=== PATIENT | male | born 1960 | race Caucasian/White ===

== ENCOUNTER 2020-07-08 11:30 | Observation (INO) | payer OTHER, SELFPAY ==
[2020-07-08] VITALS (10 sets, daily range): BP systolic 114–162; BP diastolic 54–101; PULSE 63–71; RESP 15–20; TEMP 36.2–36.7; O2SAT 93–98; BMI 39.0; BMI 39.9; BMI 40.0
--- NOTE | 2020-07-08 11:59 | EKG12_ITS ---
Test Reason : Blood Pressure : / mmHG Vent. Rate : 066 BPM Atrial Rate : 066 BPM P-R Int : 180 ms QRS Dur : 126 ms QT Int : 488 ms P-R-T Axes : 031 -07 065 degrees QTc Int : 511 ms Normal sinus rhythm Non-specific intra-ventricular conduction block Inferior infarct , age undetermined T wave abnormality, consider anterolateral ischemia Abnormal ECG Confirmed by EMORY ROMAN, ADRIAN ([id number]), associate editor KENROY MORALES ([id number]) on 07/13/2020 6:34:44 AM Referred By: REGINALD/GABRIEL Confirmed By:ADRIAN CAT MD
--- NOTE | 2020-07-08 12:00 | CT_ITS ---
STUDY: CTA HEAD AND NECK WITH CONTRAST REASON FOR EXAM: Male, 59 years old. LEFT EYE BLURRINESS X5 MINUTES X3 DAYS AGO--NO SYMPTOMS NOW -- HX AORTIC DISSECTION W/ REPAIR RADIATION DOSAGE (If Supplied By Facility): CTDIvol = ( 27.69 ) mGy, DLP = ( 2605.44 ) mGycm TECHNIQUE: CT angiography was performed with a multi-detector CT scanner. Data acquisition was obtained from the skull base through the vertex following intravenous administration of IV 100mL Isovue-370. MIP images were reconstructed from the axial data set. Post-processing of the angiographic images was performed, with multiplanar reformation and 3D reconstruction. Individualized dose optimization techniques were used for this CT. COMPARISON: No relevant priors. FINDINGS: Normal bilateral petrous carotid arteries. Normal right cavernous carotid artery with a normal supraclinoid bifurcation. Normal left cavernous carotid artery with a normal supraclinoid bifurcation. Normal right A1 segments of the anterior cerebral artery. Normal left A1 segments of the anterior cerebral artery. Normal intact anterior communicating artery (ACOM). Normal bilateral A2 segments of the anterior cerebral arteries. Normal right M1 and M2 segments of the middle cerebral arteries, with a normal M1 bifurcation. Normal left M1 and M2 segments of the middle cerebral arteries, with a normal M1 bifurcation. Normal right posterior communicating artery (PCOM). Normal left posterior communicating artery (PCOM). Normal bilateral vertebral arteries. Normal basilar artery with a normal basilar bifurcation. The visualized bilateral superior cerebellar (SCA) arteries are normal. Normal bilateral P1, P2 and visualized P3 segments of the posterior cerebral arteries. There is no demonstrated aneurysm of the [place]. There is no demonstrated abnormality of the visualized brain. AORTIC ARCH: There is atherosclerotic calcific plaque formation of the aortic arch and great vessels arising from the aortic arch, without a hemodynamically significant stenosis. There is a bovine origin of the great vessels with a common origin of the brachiocephalic and left common carotid artery. Normal origin of the left subclavian artery. Prior CABG. RIGHT CAROTID ARTERIES: Normal right common carotid artery (CCA). Normal right common carotid bulb. Normal origin of the right internal carotid (ICA) artery without a hemodynamically significant stenosis. Normal visualized cervical portion of the right internal carotid artery. Normal origin of the right external carotid artery (ECA). LEFT CAROTID ARTERIES: Normal left common carotid artery (CCA). Normal left common carotid bulb. Normal origin of the left internal carotid (ICA) artery without a hemodynamically significant stenosis. Normal visualized cervical portion of the left internal carotid artery. Normal origin of the left external carotid artery (ECA). VERTEBRAL ARTERIES: There is enhancement within the bilateral vertebral arteries with a small right vertebral artery, and a dominant left vertebral artery. CT/CTA Head AND Neck W/ Contrast IMPRESSION: Normal CTA Head and neck with contrast. Electronically Signed: Eulogio Benjamin, at 14:54 EST , Service support ,
--- NOTE | 2020-07-08 12:00 | CT_ITS ---
STUDY: CTA CHEST REASON FOR EXAM: Male, 59 years old. LEFT EYE BLURRINESS X5 MINUTES X3 DAYS AGO--NO SYMPTOMS NOW -- HX-AORTIC DISSECTION W/ REPAIR RADIATION DOSAGE (If Supplied By Facility): CTDIvol = ( 27.69 ) mGy, DLP = ( 2605.44 ) mGycm TECHNIQUE: The examination was performed with the intravenous administration of IV 100mL Isovue-370. Post-processing of the angiographic images was performed, with multiplanar reformation and 3D reconstruction. Individualized dose optimization techniques were used for this CT. COMPARISON: Comparison is made with prior examination dated 04/08/2015. FINDINGS: Normal enhancement of the main pulmonary artery and right and left pulmonary arteries. Normal enhancement of the bilateral peripheral pulmonary arteries. There is no demonstrated pulmonary embolism. Normal thoracic aorta and visualized great vessels. The patient is status post endoluminal stent grafting of a dissection of the aortic arch down to the distal portion of the descending thoracic aorta. The descending aorta is not dilated at this time. The stent is in the true lumen. The false lumen is seen in the distal portion of the thoracic aorta. Normal heart and pericardium. Normal mediastinum. Normal hilar regions. Normal visualized trachea and bronchi. Mild degree of increased markings at the left lung base suggestive of a atelectasis and/or scarring. Normal pulmonary parenchyma. Normal pleura. Normal chest wall structures. There are degenerative changes of thoracic spine. Normal visualized upper abdomen. CT/CTA Chest W/WO Contrast IMPRESSION: Status post aortic stent grafting of the dissection of the thoracic aorta from the level of the aortic arch down to the distal portion of the thoracic aorta. Patency of the true lumen. The ascending thoracic aorta is not dilated at this time. Mild degree of increased markings at the left lung base suggestive of left basilar atelectasis. Electronically Signed: Eulogio Benjamin, at 14:59 EST , Service support ,
--- NOTE | 2020-07-08 12:29 | ED.VISSUMM ---
- ER Visit Summary Date of Service: 07/08/20 Chief Complaint: Visual change left eye History of Present Illness: The patient is a 59 M who presents with change in his vision in his left eye that occurred 4 days ago. Patient states he lost the vision in his left eye. Patient states he started seeing spots of reveles and then lost complete vision in his left eye. Patient states this lasted approximately 5 minutes and then returned. Patient states nothing made it better or worse. Patient denies any headaches. Patient does admit to some occasional shortness of breath. Patient denies any fevers or chills. Patient denies any chest pain or shortness of breath. Patient saw his wage hand today who referred him to the emergency department. Physical Examination: Vital signs are stable. Patient is afebrile. Patient is in no acute distress. Pupils are dilated. Funduscopic exam was benign. Oral mucosa is pink and moist. Neck is supple. Trachea is midline. There is no JVD noted. Heart was regular rate and rhythm. Lungs are clear and equal bilaterally. Abdomen is soft. Bowel sounds are normal. There is no tenderness. There is no rebound or guarding noted. Skin is warm dry. Cranial nerves II through XII are intact. There are no focal motor or sensory deficits noted. Extremities are intact. There is no calf tenderness or edema. Test Results: EKG was obtained. On my interpretation, there is a normal sinus rhythm with a rate of 66. There is a right bundle branch block pattern. There are no acute ST or T wave changes. This was unchanged compared to previous EKG dated 04/08/2015. CBC and comprehensive metabolic profile were within normal limits. PT with INR and PTT were normal. Troponin was normal. CTA of the head and neck was obtained and was normal. CTA of the chest was obtained. There is no acute process. There is status post aortic stent grafting but no dissection. These were interpreted by the radiologist and reviewed by myself. Emergency Department Course and Treatment: Patient was feeling better on reevaluation. Patient is agreeable for admission for TIA work-up. Case was discussed with the hospitalist. Patient to PCU for observation. Patient understands and is agreeable with the plan. All questions were answered. Disposition: Admit to hospital Impression: 1. Amaurosis fugax This note was generated with Soceani[employer]ation software. It may contain incorrect words, spelling, and punctuation that were not noted in review of the chart prior to signing ED Disposition - Plan for ED Patient: Disposition: Acute Care Hospital [facility] Diagnosis: Amaurosis fugax of left eye Referrals: Sandie Hyman MD [Primary Care Provider] -
[2020-07-08 13:41] LABS: Absolute Lymphocyte Count 1.35 X10^3/uL (0.83-4.51); Absolute Neutrophil Count 5.8 X10^3/uL (2.0-7.7); Basophil# 0.09 X10^3/uL; Basophil% 1.1 % (0-1); Eosinophil# 0.29 X10^3/uL; Eosinophils% 3.5 % (0-5); Hematocrit 44.8 % (40-54); Hemoglobin 14.8 g/dL (13.0-16.5); Lymphocyte # 1.35 X10^3/ul (4.0); Lymphocyte % 16.2 % (19-41); Mean Corpuscular Hgb 28.5 pg (27.0-32.0); Mean Corpuscular Volume 86.3 fL (80-94); Mean Platelet Vol. 9.7 fl (6.2-12.0); Monocyte# 0.82 X10^3/uL; Monocyte% 9.9 % (0-10); NRBC Flagged by Analyzer 0 % (0-5); Neutrophil # 5.75 X10^3/uL (2.7-7.7); Neutrophil % 69.1 % (47-70); Platelet Count 258 K/mm3 (150-450); RBC Distribution Width CV 13.5 % (11.6-14.6); RBC Distribution Width SD 42.3 fl (35.1-43.9); Red Blood Count 5.19 M/mm3 (4.6-6.2); White Blood Count 8.3 K/mm3 (4.4-11.0)
[2020-07-08 13:50] LABS: Prothrombin Time (Protime)PT. 12.4 SECONDS (11.7-14.9)
[2020-07-08 13:51] LABS: Partial Thromboplast Time 27.4 Seconds (24.1-36.2)
[2020-07-08 13:58] LABS: ALB/GLOB Ratio 1.1 RATIO (0.9-2.4); AST(SGOT) 15 U/L (15-37); Alanine Aminotransfer ALT/SGPT 37 U/L (16-61); Alkaline Phosphatase 92 U/L (45-117); Anion Gap 4 (5-15); BUN 16 mg/dL (7-18); BUN/Creat Ratio 16.1 RATIO (10-20); Chloride 105 mmol/L (98-107); Creatinine, Serum 0.99 mg/dL (0.70-1.30); EST Glomerular Filtration Rate 82 mL/min (>60); Est Glom Filt Rate - Afr Amer 99 mL/min (>60); Estimated Creatinine Clearance 89.27 ml/min; Globulin 3.8 g/dL (2.2-4.2); Glucose 88 mg/dL (74-106); Potassium 3.5 mmol/L (3.5-5.1); Protein, Total 7.8 g/dL (6.4-8.2); Sodium Level 139 mmol/L (136-145)
--- NOTE | 2020-07-08 16:01 | HP.PCM_ITS ---
Problem List (1) Amaurosis fugax of left eye Status: Acute (2) Hypertension Status: Chronic (3) Hyperlipidemia Status: Chronic (4) Anxiety Status: Chronic (5) History of aortic dissection Status: Chronic (6) Obesity Status: Chronic History of Present Illness Date of Admission: 07/08/20 Chief Complaint: Left eye vision changes. The patient is a 59 year old M who presents to the emergency room due to left eye vision changes. Patient states on Saturday night he had left eye vision changes with spotty vision followed by vision loss which patient reports lasted only a few minutes. He denies further vision changes since that time. He was evaluated by ophthalmology today and and eye exam was reported to be normal however due to his symptoms he was sent to the emergency room for further evaluation. He denies numbness, tingling. Denies headache/migraine. Denies unilateral weakness or focal deficits. He has a past medical history of aortic dissection status post aortic stent grafting, hypertension, hyperlipidemia, anxiety, suspected HALEY, obesity. Past Medical History Past Medical History (Chronic Problems): Chronic Problems Hypertension (Chronic) Hyperlipidemia (Chronic) Anxiety (Chronic) History of aortic dissection (Chronic) Obesity (Chronic) Allergies Penicillins Allergy (Verified 07/08/20 11:33) Rash Home Medications: Ambulatory Orders Medication Instructions Recorded No Known/Unobtainable [No Known 04/08/15 Home Medications] Surgical History: - - Right ankle surgery, aortic stent grafting, tricuspid valve repair. Psychiatric History: Anxiety Lives: Spouse/ Significant Other Smoking Status: Former smoker Alcohol: Occasional Drugs: None - *Family History Maternal History Items: - - Denies known maternal medical history including cardiac history. Paternal History Items: Cancer Review of Systems Constitutional: Denies: Chills, Fever, Weight Change Eyes: Reports: - - Transient left eye vision loss/vision changes HEENT: Denies: Head Aches, Sinus Congestion, Sinus Drainage Cardiovascular: Denies: Chest Pain, Palpitations Respiratory: Denies: Cough, Shortness of breath at rest, Sputum production Gastrointestinal: Denies: Abdominal Pain, Nausea, Vomiting Genitourinary: Denies: Dysuria Musculoskeletal: Denies: Joint Pain, Joint Tenderness Skin: Denies: Rash, Wounds Neurological: Denies: Numbness, Tingling, Focal weakness Psychiatric: Denies: Anxiety, Depression, Homicidal Ideations, Suicidal Ideations Hematologic/ Lymphatic: Denies: Easy Bruising, Easy Bleeding VTE Information - Inpt Only VTE Present on Admission: No VTE Mechan Device Prophylaxis: None VTE Pharm Prophylaxis ordered?: Yes Patient Problems: Active and Suspected Problems Amaurosis fugax of left eye (Acute) - Physical Exam Vitals/I&O's: Vital Signs Temp Pulse Resp BP Pulse Ox 97.4 F L 67 15 146/76 H 96 07/08/20 11:31 07/08/20 15:45 07/08/20 15:45 07/08/20 15:45 07/08/20 15:45 Oxygen Delivery Method Room Air Weight: 287 lb 14.779 oz Body Mass Index (BMI) 39.0 General: Alert, Oriented x3, Cooperative HEENT: Atraumatic, PERRLA, EOMI, Normocephalic Neck: Supple, No JVD, Negative Carotid Bruits Lungs: Clear to auscultation, Normal air movement Cardiovascular: Regular rate, No murmurs Abdomen: Bowel Sounds Present, Soft, Non Tender Extremities: No clubbing, No cyanosis, No edema, Capillary Refill Less than 3 Seconds Skin: No rashes, No breakdown Musculoskeletal: No Tenderness to Palpation of Joints or Extremities Neurological: Cranial nerves II-XII grossly intact, Neuro grossly intact Psych/Mental Status: Normal Affect, Appropriate Laboratory Results 07/08/20 13:30: WBC 8.3, RBC 5.19, Hgb 14.8, Hct 44.8, MCV 86.3, MCH 28.5, MCHC 33.0, RDW Std Deviation 42.3, RDW Coeff of [place] 13.5, Plt Count 258, MPV 9.7, Imm ature Gran % (Auto) 0.200, Neut % (Auto) 69.1, Lymph % (Auto) 16.2 L, [place] % (Auto) 9.9, Eos % (Auto) 3.5, Baso % (Auto) 1.1 H, Absolute Neuts (auto) 5.8, Absolute Lymphs (auto) 1.35, Nucleated RBC % 0 07/08/20 13:30: PT 12.4, INR 1.0, APTT 27.4 07/08/20 13:30: Sodium 139, Potassium 3.5, Chloride 105, Carbon Dioxide 30.0, Anion Gap 4 L, BUN 16, Creatinine 0.99, Estim Creat Clear Calc 89.27, Est GFR (MDRD) Af Amer 99, Est GFR (MDRD) Non-Af 82, BUN/Creatinine Ratio 16.1, Glucose 88, Calcium 9.0, Total Bilirubin 0.90, AST 15, ALT 37, Alkaline Phosphatase 92, Troponin I < 0.015, Total Protein 7.8, Albumin 4.0, Globulin 3.8, Albumin/Globulin Ratio 1.1 Assessment/Plan All Active Problems Amaurosis fugax of left eye (Acute) 1. Left eye vision changes, rule out TIA/CVA-head and neck CTA normal. Obtain MRI of brain. Aspirin, statin. Lipid panel in a.m. If MRI abnormal, consult neurology. PT/OT/ST. 2. History of aortic dissection-CTA demonstrates aortic stent grafting of the thoracic aorta, no dilation. 3. Hypertension-permissive given #1. Hold home losartan, metoprolol, HCTZ, amlodipine regimen. 4. Fciojopaazmfmk-izuh-pomy statin. Lipid panel in a.m. 5. Depression-on escitalopram. 6. Suspected HALEY-patient states he had abnormal sleep study 1 year ago however he thinks it was due to his dog jumping on him. 7. Obesity-encouraged diet lifestyle modifications. DVT prophylaxis-Lovenox subcu This patient was seen by IFTIKHAR Quiroz under the supervision of Dr. Salcedo.
--- NOTE | 2020-07-08 16:09 | NURSING ---
PCU WHITE AMAUROSIS FUGAX
--- NOTE | 2020-07-08 18:12 | MRI_ITS ---
STUDY: MRI BRAIN WITHOUT CONTRAST REASON FOR EXAM: Male, 59 years old. Sent to ER by harness and bag inspector d/t one episode of vision loss in left eye on 07/05/2020, hx of aortic dissection repair in 2017 TECHNIQUE: Standardized multiplanar fat and water weighted pulse sequences were obtained. COMPARISON: CT of the brain 07/08/2020 FINDINGS: Normal size of the ventricles and extra-axial spaces for the patient''s age. There is focal gliosis in the right parietal lobe which may be secondary to chronic ischemic changes. No restricted diffusion to suggest acute ischemia.. Normal bilateral basal ganglia. Normal thalami. There is no extra-axial fluid accumulation. Normal flow voids within the major intracranial circulation suggesting patency by spin echo criteria. Normal sella turcica, pituitary gland, infundibular stalk, optic chiasm and hypothalamus. Normal tectal plate and pineal gland. Normal midbrain, jaimie and medulla. Normal cerebellum. Normal basal cisterns. Normal bilateral temporal bones. Normal bilateral internal auditory canals. No demonstrated orbital abnormality, within the constraints of a routine brain study. Small mucous retention cyst in left maxillary sinus. Minor mucosal thickening of the ethmoid air cells. Normal calvarium and skull base. Normal visualized soft tissue structures. Normal visualized upper cervical spine. MRI/Brain without Contrast IMPRESSION: Mild focal gliosis in the right parietal lobe consistent with chronic ischemic changes but no evidence for acute infarct. Electronically Signed: Silvano Cox MD at 19:58 EST , Service support ,
[2020-07-08 18:46] LABS: Magnesium 2.1 mg/dL (1.6-2.6); Thyroid Stim Hormone (TSH) 1.28 uIU/mL (0.358-3.74)
[2020-07-08] MEDS: Escitalopram Oxalate 20 MG Tablet PO (22:21)
[2020-07-08] MEDS: Metoprolol Tartrate 50 MG Tablet 150 MG PO (22:21)
[2020-07-08] MEDS: Atorvastatin Calcium 80 MG Tablet PO (22:21)
[2020-07-08] MEDS: Losartan Potassium 50 MG Tablet PO (22:22)
[2020-07-09 03:00] VITALS: PULSE 57
[2020-07-09 03:50] VITALS: BP 122/61; PULSE 53; RESP 19; TEMP 36.6; O2SAT 95
[2020-07-09 06:48] VITALS: O2SAT 94
[2020-07-09 07:00] VITALS: PULSE 57
[2020-07-09 08:13] LABS: Cholesterol 108 mg/dL (200); High Density Lipoprotein 37 mg/dL; Triglycerides 155 mg/dL; Very Low Density Lipoprotein 31 mg/dL (5-40)
[2020-07-09] MEDS: Aspirin 81 MG TAB.CHEW PO (08:15)
--- NOTE | 2020-07-09 08:17 | PCS.PANDOC ---
PANDEMIC DOCUMENTATION INITIATED: Date: 07/08/20 Time: 1073
--- NOTE | 2020-07-09 09:27 | DCINST_ITS ---
- Discharge Diagnoses Current Active Problems: Current Active and Chronic Problems Amaurosis fugax of left eye (Acute) Hypertension (Chronic) Hyperlipidemia (Chronic) Anxiety (Chronic) History of aortic dissection (Chronic) Obesity (Chronic) You will use the following diet at home:: Cardiac Discharge Activity: Return to Normal Activity Call your doctor if you observe: Shortness of breath, Dizziness, Fainting spells, Chest pain Allergies/Adverse Reactions: Allergies Penicillins Allergy (Verified 07/08/20 11:33) Rash Medications to take at Discharge Amlodipine [Norvasc] 10 mg PO DAILY 07/08/20 Aspirin E.C. [Ecotrin] 81 mg PO DAILY@0800 07/08/20 Atorvastatin Calcium [Lipitor] 20 mg PO QHS 07/08/20 Escitalopram Oxalate 20 mg PO QHS 07/08/20 Furosemide [Lasix] 20 mg PO DAILY PRN PRN 07/08/20 Hydrochlorothiazide [Hctz] 25 mg PO DAILY 07/08/20 Losartan Potassium [Cozaar] 50 mg PO BID 07/08/20 Metoprolol Tartrate [Lopressor (beta kam)] 150 mg PO BID 07/08/20 Multivitamin with Minerals [Multiple Vitamin] 1 tab PO DAILY 07/08/20 Omeprazole 20 mg PO DAILY 07/08/20 Primary Care Physician: Sandie Hyman MD [Primary Care Provider] - Please follow up with your Primary Care Physician in: 1 Week Test Results: Test results from this visit will be discussed in further detail at your follow- up appointment, if applicable. Proposed Discharge Date: 07/09/20
[2020-07-09 09:40] VITALS: BP 137/72; PULSE 65; RESP 16; TEMP 37; O2SAT 94
[2020-07-09 09:45] VITALS: PULSE 65
[2020-07-09] MEDS: Metoprolol Tartrate 50 MG Tablet 150 MG PO (09:45)
[2020-07-09] MEDS: Pantoprazole Sodium 20 MG Tablet PO (09:45)
[2020-07-09] MEDS: Losartan Potassium 50 MG Tablet PO (09:45)
[2020-07-09] MEDS: hydroCHLOROthiazide 25 MG Tablet PO (09:45)
[2020-07-09] MEDS: amLODIPine 10 MG Tablet PO (09:45)
--- NOTE | 2020-07-09 11:49 | PCM.DC.SUM ---
Discharge Date and Diagnosis - Problem List Patient Problems: Active and Suspected Problems Amaurosis fugax of left eye (Acute) Date of Admission: 07/08/20 Date of Discharge: 07/09/20 - Primary Discharge Diagnosis Acute Problems: Active Problems 1. Transient amaurosis fugax of left eye 2. History of aortic dissection 3. Hypertension 4. Hyperlipidemia 5. Depression 6. Suspected HALEY 7. Obesity - Secondary Discharge Diagnosis Chronic Problems: Chronic Problems Hypertension (Chronic) Hyperlipidemia (Chronic) Anxiety (Chronic) History of aortic dissection (Chronic) Obesity (Chronic) Hospital Course and Treatment Imaging Results: Diagnostic Data Chest CTA 07/08/20 12:00 IMPRESSION: Status post aortic stent grafting of the dissection of the thoracic aorta from the level of the aortic arch down to the distal portion of the thoracic aorta. Patency of the true lumen. The ascending thoracic aorta is not dilated at this time. Mild degree of increased markings at the left lung base suggestive of left basilar atelectasis. Electronically Signed: Eulogio Benjamin, at 14:59 EST , Service support , Head/Neck CTA 07/08/20 12:00 IMPRESSION: Normal CTA Head and neck with contrast. Electronically Signed: Eulogio Benjamin, at 14:54 EST , Service support , Brain MRI 07/08/20 18:12 IMPRESSION: Mild focal gliosis in the right parietal lobe consistent with chronic ischemic changes but no evidence for acute infarct. Electronically Signed: Silvano Cox MD at 19:58 EST , Service support , Operations: None Procedures: None Summary of Care Provided: The patient is a 59 year old M admitted 07/08/2020 due to left eye vision changes. 1. Transient amaurosis fugax of left eye- TIA/CVA ruled out. Head and neck CTA normal. MRI of brain without acute infarct. Patient was cleared by ophthalmology. He is on aspirin, statin at baseline. Follow-up with PCP in 1 week. 2. History of aortic dissection-CTA demonstrates aortic stent grafting of the thoracic aorta, no dilation. 3. Hypertension-continue home losartan, metoprolol, HCTZ, amlodipine regimen. 4. Hyperlipidemia-continue home statin regimen. 5. Depression-on escitalopram. 6. Suspected HALEY-patient states he had abnormal sleep study 1 year ago however he thinks it was due to his dog jumping on him. Recommend further follow-up and evaluation. 7. Obesity-encouraged diet lifestyle modifications. General: Alert, Oriented x3, Cooperative HEENT: Atraumatic, PERRLA, EOMI, Normocephalic Neck: Supple, No JVD, Negative Carotid Bruits Lungs: Clear to auscultation, Normal air movement Cardiovascular: Regular rate, No murmurs Abdomen: Bowel Sounds Present, Soft, Non Tender Extremities: No clubbing, No cyanosis, No edema, Capillary Refill Less than 3 Seconds Skin: No rashes, No breakdown Musculoskeletal: No Tenderness to Palpation of Joints or Extremities Neurological: Cranial nerves II-XII grossly intact, Neuro grossly intact Psych/Mental Status: Normal Affect, Appropriate Patient seen and examined prior to discharge. Physical assessment as noted above. Patient is stable for discharge with follow up recommendations as noted above. This patient was seen by IFTIKHAR Quiroz under the supervision of Dr. [place]. Patient Problems: Active and Suspected Problems Amaurosis fugax of left eye (Acute) - Physical Exam Vitals/I&O's: Vital Signs Temp Pulse Resp BP Pulse Ox 98.6 F 65 16 137/72 H 94 07/09/20 09:40 07/09/20 09:45 07/09/20 09:40 07/09/20 09:40 07/09/20 09:40 Oxygen Delivery Method Room Air Weight: 286 lb 9.615 oz Body Mass Index (BMI) 39.9 Intake and Output for Last 24 Hours 07/07/20 07/08/20 07/09/20 23:59 23:59 23:59 Intake Total 900 / 900 120 / 120 Balance 900 / 900 120 / 120 Laboratory Results 07/08/20 13:30: WBC 8.3, RBC 5.19, Hgb 14.8, Hct 44.8, MCV 86.3, MCH 28.5, MCHC 33.0, RDW Std Deviation 42.3, RDW Coeff of [place] 13.5, Plt Count 258, MPV 9.7, Immature Gran % (Auto) 0.200, Neut % (Auto) 69.1, Lymph % (Auto) 16.2 L, [place] % (Auto) 9.9, Eos % (Auto) 3.5, Baso % (Auto) 1.1 H, Absolute Neuts (auto) 5.8, Absolute Lymphs (auto) 1.35, Nucleated RBC % 0 07/08/20 13:30: PT 12.4, INR 1.0, APTT 27.4 07/08/20 13:30: Sodium 139, Potassium 3.5, Chloride 105, Carbon Dioxide 30.0, Anion Gap 4 L, BUN 16, Creatinine 0.99, Estim Creat Clear Calc 89.27, Est GFR (MDRD) Af Amer 99, Est GFR (MDRD) Non-Af 82, BUN/Creatinine Ratio 16.1, Glucose 88, Calcium 9.0, Total Bilirubin 0.90, AST 15, ALT 37, Alkaline Phosphatase 92, Troponin I < 0.015, Total Protein 7.8, Albumin 4.0, Globulin 3.8, Albumin/Globulin Ratio 1.1 07/08/20 13:30: Magnesium 2.1, TSH 1.28 07/09/20 07:20: Triglycerides 155, Cholesterol 108, LDL Cholesterol 40, VLDL Cholesterol 31, HDL Cholesterol 37 L Discharge Diet: Low fat/ Low Cholesterol Discharge Activity: Return to Normal Activity Call your doctor if you observe: Shortness of breath, Dizziness, Fainting spells, Chest pain Home Medications: Medications to take at Discharge Amlodipine [Norvasc] 10 mg PO DAILY 07/08/20 Aspirin E.C. [Ecotrin] 81 mg PO DAILY@0800 07/08/20 Atorvastatin Calcium [Lipitor] 20 mg PO QHS 07/08/20 Escitalopram Oxalate 20 mg PO QHS 07/08/20 Furosemide [Lasix] 20 mg PO DAILY PRN PRN 07/08/20 Hydrochlorothiazide [Hctz] 25 mg PO DAILY 07/08/20 Losartan Potassium [Cozaar] 50 mg PO BID 07/08/20 Metoprolol Tartrate [Lopressor (beta kam)] 150 mg PO BID 07/08/20 Multivitamin with Minerals [Multiple Vitamin] 1 tab PO DAILY 07/08/20 Omeprazole 20 mg PO DAILY 07/08/20 Primary Care Physician: Sandie Hyman MD [Primary Care Provider] - Please follow up with your Primary Care Physician in: 1 Week Disposition: Home Minutes spent on discharge:: 35 Patient Condition:: Stable Medical Necessity - Tobacco Use Smoking Status: Former smoker Meaningful Use Info Meaningful Use Diagnoses (Choose all that apply): None applicable
== END 2020-07-09 09:28 | disposition home or self-care (01) ==
LOC: ED 15:53 → PCU 16:15
PROVIDERS: Admitting Provider Nurse Practitioner Family; Emergency Provider Emergency Medicine; PCP Internal Medicine; Visit Provider Internal Medicine
DX: G45.3 Amaurosis fugax (principal); I10 Essential (primary) hypertension; E78.5 Hyperlipidemia, unspecified; F32.9 Major depressive disorder, single episode, unspecified; I45.10 Unspecified right bundle-branch block; E66.01 Morbid (severe) obesity due to excess calories; F41.8 Other specified anxiety disorders; Z87.891 Personal history of nicotine dependence; Z79.899 Other long term (current) drug therapy; Z79.82 Long term (current) use of aspirin; Z68.39 Body mass index [BMI] 39.0-39.9, adult; K21.9 Gastro-esophageal reflux disease without esophagitis
CPT/HCPCS: 36415; 70496; 70498; 70551; 71275; 80053; 80061; 83735; 84443; 84484; 85025; 85610; 85730; 93005; 99218; 99285; J7030; Q9967; A4216; G0378